=== PATIENT | female | born 1945 | race Caucasian/White ===

== ENCOUNTER → 2017-03-16 | Outpatient (CLI) | payer OTHER | LOC: RAD 01:37 | DX: Z12.31 Encounter for screening mammogram for malignant neoplasm of breast (principal); Z85.3 Personal history of malignant neoplasm of breast ==

== ENCOUNTER → 2018-05-17 | Outpatient (CLI) | payer OTHER | LOC: RAD 12:13 | DX: Z12.31 Encounter for screening mammogram for malignant neoplasm of breast (principal) ==